=== PATIENT | female | born 1965 | race Caucasian/White ===

== ENCOUNTER → 2023-11-17 09:32 | Outpatient (REF) | payer BC, SELFPAY | LOC: WDC 09:32 | PROVIDERS: ATTENDING PHYSICIAN Physician Assistant Medical | DX: N63.22 Unspecified lump in the left breast, upper inner quadrant (principal) | CPT/HCPCS: 76642; 77062; 77066 ==

== ENCOUNTER → 2025-02-11 07:19 | Outpatient (REF) | payer BC, SELFPAY | LOC: WDC 07:19 | PROVIDERS: ATTENDING PHYSICIAN Physician Assistant Medical | DX: Z12.31 Encounter for screening mammogram for malignant neoplasm of breast (principal) | CPT/HCPCS: 77063; 77067 ==